=== PATIENT | female | born 2000 | race American Indian/Alaskan Native ===

== ENCOUNTER 2020-12-07 19:34 | Outpatient (CLI) | payer BC ==
[2020-12-07 20:54] VITALS: BP 114/69
[2020-12-07] MEDS ORDERED: LACTATED RINGERS 500 ML IV ONE ×2 (21:30→23:36)
[2020-12-07] MEDS ORDERED: ONDANSETRON 4 MG/2 ML INJ IV ONE (22:00)
[2020-12-07 22:54] LABS: Bacteria,Urine 1+ /HPF (Negative); Bilirubin,Urine NEG (Negative); Blood,Urine NEG (Negative); Color,Urine Amber (Yellow); Mucus,Urine 2+ /HPF
== END 2020-12-07 23:33 | disposition home or self-care (01) ==
LOC: TRG 19:34 → APU 21:56 → TRG 23:33
PROVIDERS: ATTEND Obstetrics & Gynecology
DX: O21.2 Late vomiting of pregnancy (principal); Z3A.32 32 weeks gestation of pregnancy; Z79.899 Other long term (current) drug therapy
CPT/HCPCS: 59025; 81001; 87086; 96365; J2405; J7120; 96360

== ENCOUNTER 2021-01-09 16:08 | Outpatient (CLI) | payer BC, OTHER ==
[2021-01-09 16:38] VITALS: BP 122/64
== END 2021-01-09 17:47 | disposition home or self-care (01) ==
LOC: TRG 16:08 → APU 16:09 → TRG 17:47
PROVIDERS: ATTEND Student in an Organized Health Care Education/Training Program
DX: Z34.93 Encounter for supervision of normal pregnancy, unspecified, third trimester (principal); Z3A.37 37 weeks gestation of pregnancy
CPT/HCPCS: 59025; Q0177

== ENCOUNTER 2021-02-07 08:25 | Inpatient (IN) | payer BC, OTHER ==
--- NOTE | 2021-02-07 09:28 | History and Physical Report ---
History of Present Illness Date of examination: 02/07/21 Date of admission: 02/07/21 08:25 Chief complaint: scheduled induction History of present illness: EDC Confirmation: 01/28/2021 Past History : 2 Term Births: 1 Premature Births: 0 Living Children: 1 Para: 1 Mult. Births: 0 Prev : 0 Prev. attempt? 0 Aborta: 0 Elect. Ab: 0 Spont. 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 Past Medical History: Reviewed history from 05/29/2019 and no changes required: Negative Past Medical History Past Surgical History: Reviewed history from 05/29/2019 and no changes required: negative Past Medical History Anesthesia Complications: negative Anemia: negative Autoimmune Disorder: negative Bleeding Disorder: negative Blood Transfusions: negative Breast Disease: negative Diabetes: negative Heart Disease: negative Hypertension: negative Hepatitis/Liver Disease: negative Kidney Disease/UTI: negative Neurologic/Epilepsy/Migraines: negative Phlebitis/Varicosities: negative Psychiatric: negative Pulmonary Disease/Asthma: negative Thyroid Disease: negative Hospitalizations: negative Surgery (Non-director of conservation): negative Abnormal PAP: negative TIFFANY Exposure: negative Infertility: negative Uterine Anomaly: negative Uterine Surgery (not C/S): negative Other Gynecologic Problems: negative Social Hx: Patient is single Smoking History: Patient has never smoked. Infection History Hx of STD: chlamydia HIV Risk Eval: no Hepatitis B Risk Eval: low risk Personal hx. of genital herpes: no Partner hx. of genital herpes: no Rash, Viral, or Febrile illness since last LMP? no Varicella/Chicken Pox Status: Unknown TB Risk: no Genetic History Congenital Heart Defect: Mom: no Dad: no Alex Disease: Mom: no Dad: no Thalassemia Mom: no Dad: no Neural Tube Defect Mom: no Dad: no Down's Syndrome Mom: no Dad: no Adam-Sachs Mom: no Dad: no Sickle Cell Disease/Trait Mom: no Dad: no Hemophilia Mom: no Dad: no Muscular Dystrophy Mom: no Dad: no Cystic Fibrosis Mom: no Dad: no Cassatt Chorea Mom: no Dad: no Mental Retardation Mom: no Dad: no Fragile X Mom: no Dad: no Other Genetic/Chromosomal Disorder Mom: no Dad: no Child w/other defect Mom: no Dad: no Enviromental Exposures Enviromental Exposures Reviewed Xray Exposure: no Medication, drug, or alcohol use since LMP: no Chemical/Other Exposure: no Exposure to Cat Liter: no Hx of Parvovirus (Fifth Disease): no Occupational Exposure to Children: none Active Medications (reviewed today): None Current Allergies (reviewed today): * UNKNOWN MEDICATION IN EPIDURAL (Critical) Current Medications (including medications started today): 27-1 MG ORAL TABLET ( VIT-FE FUMARATE-FA) 1 PO daily; Route: ORAL Past History Past Medical History: other (see HPI) Past Surgical History: other (see HPI) 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) Family/Genetic History: other (see HPI) Social history: other (see HPI) - Obstetrical History Expected Date of Delivery: 01/28/21 Actual Gestation: 41 Week(s) 3 Day(s) : 2 Para: 1 Hx # Term Pregnancies: 1 Number of Pregnancies: 0 Spontaneous Abortions: 0 Induced : 0 Number of Living Children: 1 Medications and Allergies Allergies Allergy/AdvReac Type Severity Reaction Status Date / Time No Known Allergies Allergy Unverified 12/07/20 20:55 Home Medications Medication Instructions Recorded Confirmed Last Taken Type Vit-Fe Fumar-FA [ 1 tab PO DAILY 01/09/21 01/09/21 01/08/21 16:00 History Vitamin] Review of Systems All systems: negative - Physical Exam Breasts: Positive: deferred Cardiovascular: Regular rate Lungs: Positive: Normal air movement Abdomen: Positive: normal appearance, soft. Negative: tenderness, guarding Genitourinary (Female): Positive: normal external genitalia, normal perenium Vulva: both: normal Vagina: Positive: normal moisture Uterus: Positive: normal size, normal contour, other (gravid) Anus/Rectum: Positive: normal perianal skin, heme negative Extremities: Positive: normal - Obstetrical FHR comments: RN at bedside to place external monitors Uterine Contraction Monitor Mode: Palpation Cervical Dilatation: 1 Cervical Effacement Percentage: 0 station: -3 Uterine Contraction Pattern: Absent Uterine Tone Measurement Phase: Resting Results All other labs normal. Tests: (1) Ct, Ng, Trich vag by DIDI ([id number]) Order Note: Clinical Information: SRC:UR SRC:VR Chlamydia by DIDI Negative Negative *1 Gonococcus by DIDI Negative Negative *2 Trich vag by DIDI Negative Negative *3 Tests: (2) Strep Gp B DIDI ([id number]) ! Strep Gp B DIDI [A] Positive Negative *4 Tests: (1) Profile I ([id number]) Order Note: Clinical Information: SRC:UR HBsAg Screen Negative Negative *1 RPR Non Reactive Non Reactive *2 Rubella Antibodies, IgG 29.70 index Immune >0.99 *3 Non-immune <0.90 Equivocal 0.90 - 0.99 Immune >0.99 ABO Grouping A *4 Rh Factor Positive *5 Please note: Prior records for this patient's ABO / Rh type are not available for additional verification. Antibody Screen Negative Negative *6 WBC [H] 10.9 x10E3/uL 3.4-10.8 *7 RBC 4.30 x10E6/uL 3.77-5.28 *8 Hemoglobin 12.0 g/dL 11.1-15.9 *9 Hematocrit 35.1 % 34.0-46.6 *10 MCV 82 fL 79-97 *11 MCH 27.9 pg 26.6-33.0 *12 MCHC 34.2 g/dL 31.5-35.7 *13 RDW 13.2 % 11.7-15.4 *14 Platelets 190 x10E3/uL 150-450 *15 Neutrophils 73 % Not Estab. *16 Lymphs 20 % Not Estab. *17 Monocytes 4 % Not Estab. *18 Eos 1 % Not Estab. *19 Basos 1 % Not Estab. *20 ! Immature Cells <No Reported Value> *21 Neutrophils (Absolute) [H] 8.1 x10E3/uL 1.4-7.0 *22 Lymphs (Absolute) 2.2 x10E3/uL 0.7-3.1 *23 Monocytes(Absolute) 0.5 x10E3/uL 0.1-0.9 *24 Eos (Absolute) 0.1 x10E3/uL 0.0-0.4 *25 Baso (Absolute) 0.1 x10E3/uL 0.0-0.2 *26 ! Immature Granulocytes 1 % Not Estab. *27 ! Immature Grans (Abs) 0.1 x10E3/uL 0.0-0.1 *28 ! NRBC <No Reported Value> *29 Hematology Comments: <No Reported Value> *30 Tests: (2) HB Solu + Rflx Frac ([id number]) Hemoglobin (Hgb) Solubility Negative Negative *31 Tests: (3) HIV Ag/Ab with Reflex ([id number]) HIV Screen 4th Generation wRfx Non Reactive Non Reactive *32 Tests: (4) Varicella-Zoster V Ab, IgG ([id number]) ! Varicella Zoster IgG 502 index Immune >165 *33 Negative <135 Equivocal 135 - 165 Positive >165 A positive result generally indicates exposure to the pathogen or administration of specific immunoglobulins, but it is not indication of active infection or stage of disease. Tests: (5) HCV Antibody reflex to DIDI ([id number]) ! HCV Ab <0.1 s/co ratio 0.0-0.9 *34 Tests: (6) Interpretation: ([id number]) ! Interpretation: SPRCS *35 Negative Not infected with HCV, unless recent infection is suspected or other evidence exists to indicate HCV infection. Tests: (7) Urine Culture, Routine ([id number]) Urine Culture, Routine Final report *36 Tests: (8) Result ([id number]) ! Result 1 "Result Below..." *37 RESULT: Lactobacillus species 25,000-50,000 colony forming units per mL Susceptibility not normally performed on this organism. Assessment and Plan Pt denies complaints this am; Reports +FM and prior successful s/p Pitocin induction. US in office on 02/03/21 with EFW [id number] reviewed with pt. POC d/w pt. All questions and concerns addressed. Pt verbalizes understanding and agrees to POC. Anticipate . - Patient Problems (1) 41 weeks gestation of Current Visit: Yes Status: Acute Plan to address problem: continuous efm and toco (2) Encounter for induction of labor Current Visit: Yes Status: Acute (3) GBS carrier Current Visit: Yes Status: Acute Plan to address problem: treatment with ROM or with active labor
[2021-02-07] MEDS ORDERED: ePHEDrine SULFATE 50 MG/1 ML INJ IV PRN ×2 (09:37→10:00)
[2021-02-07] MEDS ORDERED: LIDOCAINE (2%) 20 MG/1 ML VIAL 20 ML MDV INFILTRATI NR (09:37)
--- NOTE | 2021-02-07 09:39 | Anesthesia Consultation ---
Anesthesia Consult and Med Hx Date of service: 02/07/21 - Airway Anesthetic Teeth Evaluation: Good ROM Head & Neck: Adequate Mental/Hyoid Distance: Adequate Mallampati Class: Class II Intubation Access Assessment: Probably Good - Pulmonary Exam CTA: Yes - Cardiac Exam Cardiac Exam: RRR - Pre-Operative Health Status ASA Pre-Surgery Classification: ASA2 Proposed Anesthetic Plan: Epidural - Pulmonary Hx Asthma: No - Cardiovascular System Hx Hypertension: No - Central Nervous System Hx Seizures: No Hx Psychiatric Problems: No - Endocrine Hx Renal Disease: No Hx Hypothyroidism: No Hx Hyperthyroidism: No - Hematic Hx Anemia: No Hx Sickle Cell Disease: No - Other Systems Hx Alcohol Use: No - Additional Comments Anesthesia Medical History Comments: Pt reports rash/allergic reaction to previous epidural with bupivacaine/fentanyl. States she was told it was likely fentanyl. Skin wheel with bupivacaine performed to r/o bupivacaine allergy.
[2021-02-07] MEDS ORDERED: NALOXONE 2 MG/2 ML INJ IV PRN (09:44)
[2021-02-07] MEDS ORDERED: AMPICILLIN 2 GM in SODIUM CHLORIDE 0.9% 50 ML IV ONE (09:45)
[2021-02-07] MEDS ORDERED: ACETAMINOPHEN 325 MG TAB PO PRN (10:00)
[2021-02-07] MEDS ORDERED: NalbUPHINE 10 MG/1 ML INJ IV PRN (10:00)
[2021-02-07] MEDS ORDERED: ONDANSETRON 4 MG/2 ML INJ IV PRN (10:00)
[2021-02-07] MEDS ORDERED: PROMETHAZINE 25 MG TAB PO PRN (10:00)
[2021-02-07] MEDS ORDERED: LACTATED RINGERS 1,000 ML IV SCH (10:00)
[2021-02-07] MEDS ORDERED: OXYTOCIN DRIP 30 UNITS/500 ML BAG IV SCH (10:00)
[2021-02-07] MEDS ORDERED: NALOXONE 0.4 MG/1 ML INJ IV PRN (10:00)
[2021-02-07] MEDS ORDERED: AMPICILLIN/NS 2 GM/100 ML 2 GM/100 ML BAG IV ONE (10:00)
[2021-02-07] MEDS ORDERED: TERBUTALINE 1 MG/1 ML INJ SUB-Q PRN (10:00)
[2021-02-07 10:16] LABS: Hematocrit 36.2 % (30.3-42.9); Hemoglobin 12.7 gm/dl (10.1-14.3); Mean Corpuscular HGB Conc 35 % (30-34); Mean Corpuscular Volume 82 fl (79-97); Platelet Count 137 K/mm3 (140-440); Red Blood Count 4.39 M/mm3 (3.65-5.03); Red Cell Distribution Width 13.6 % (13.2-15.2)
[2021-02-07] MEDS: OXYTOCIN DRIP 30 UNITS/500 ML BAG IV SCH ×6 (10:30→16:26)
[2021-02-07] MEDS ORDERED: SODIUM CHLORIDE INFILTRATI SCH ×2 (18:00→23:45)
[2021-02-07] MEDS ORDERED: BUPIVACAINE INFILTRATI SCH ×2 (18:00→23:45)
[2021-02-07] MEDS: AMPICILLIN/NS 1 GM/50 ML 1 GM/50 ML BAG IV SCH (19:27)
--- NOTE | 2021-02-07 21:26 | Progress Note ---
Assessment and Plan Pt denies complaints at this time. Pitocin restarted s/p pm care and dinner. SVE /2. POC d/w pt and FOC. All questions and concerns addressed. Pt verbalizes understanding and agrees to POC. Plan to continue Pitocin induction per protocol. Anticipate . - Patient Problems (1) 41 weeks gestation of Current Visit: Yes Status: Acute Plan to address problem: continuous efm and toco monitor closely and notify provider with any changes in status (2) Encounter for induction of labor Current Visit: Yes Status: Acute (3) GBS carrier Current Visit: Yes Status: Acute Plan to address problem: Ampicillin q4h VS per protocol Subjective - Subjective Date of service: 02/07/21 Principal diagnosis: IUP @41wks, IOL Interval history: EDC Confirmation: 01/28/2021 Past History : 2 Term Births: 1 Premature Births: 0 Living Children: 1 Para: 1 Mult. Births: 0 Prev : 0 Prev. attempt? 0 Aborta: 0 Elect. Ab: 0 Spont. 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 Past Medical History: Reviewed history from 05/29/2019 and no changes required: Negative Past Medical History Past Surgical History: Reviewed history from 05/29/2019 and no changes required: negative Past Medical History Anesthesia Complications: negative Anemia: negative Autoimmune Disorder: negative Bleeding Disorder: negative Blood Transfusions: negative Breast Disease: negative Diabetes: negative Heart Disease: negative Hypertension: negative Hepatitis/Liver Disease: negative Kidney Disease/UTI: negative Neurologic/Epilepsy/Migraines: negative Phlebitis/Varicosities: negative Psychiatric: negative Pulmonary Disease/Asthma: negative Thyroid Disease: negative Hospitalizations: negative 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 Infection History Hx of STD: chlamydia HIV Risk Eval: no Hepatitis B Risk Eval: low risk Personal hx. of genital herpes: no Partner hx. of genital herpes: no Rash, Viral, or Febrile illness since last LMP? no Varicella/Chicken Pox Status: Unknown TB Risk: no Genetic History Congenital Heart Defect: Mom: no Dad: no Alex Disease: Mom: no Dad: no Thalassemia Mom: no Dad: no Neural Tube Defect Mom: no Dad: no Down's Syndrome Mom: no Dad: no Adam-Sachs Mom: no Dad: no Sickle Cell Disease/Trait Mom: no Dad: no Hemophilia Mom: no Dad: no Muscular Dystrophy Mom: no Dad: no Cystic Fibrosis Mom: no Dad: no Luz Chorea Mom: no Dad: no Mental Retardation Mom: no Dad: no Fragile X Mom: no Dad: no Other Genetic/Chromosomal Disorder Mom: no Dad: no Child w/other defect Mom: no Dad: no Enviromental Exposures Enviromental Exposures Reviewed Xray Exposure: no Medication, drug, or alcohol use since LMP: no Chemical/Other Exposure: no Exposure to Cat Liter: no Hx of Parvovirus (Fifth Disease): no Occupational Exposure to Children: none Active Medications (reviewed today): None Current Allergies (reviewed today): * UNKNOWN MEDICATION IN EPIDURAL (Critical) Current Medications (including medications started today): 27-1 MG ORAL TABLET ( VIT-FE FUMARATE-FA) 1 PO daily; Route: ORAL Patient reports: movement normal, contractions, no new complaints, no loss of fluid, no vaginal bleeding Objective - Vital Signs Vital Signs: Vital Signs - 12hr 02/07/21 02/07/21 02/07/21 09:40 10:10 10:12 Temperature 98.3 F Pulse Rate 85 89 83 Respiratory 15 Rate Blood Pressure 112/67 Blood Pressure 112/67 [Left] O2 Sat by Pulse 97 Oximetry O2 Sat by Pulse Oximetry [ Bilateral] 02/07/21 02/07/21 02/07/21 10:17 10:22 10:27 Temperature Pulse Rate 95 H 99 H 90 Respiratory Rate Blood Pressure Blood Pressure [Left] O2 Sat by Pulse 98 97 99 Oximetry O2 Sat by Pulse Oximetry [ Bilateral] 02/07/21 02/07/21 02/07/21 10:32 10:37 10:42 Temperature Pulse Rate 94 H 77 80 Respiratory Rate Blood Pressure Blood Pressure [Left] O2 Sat by Pulse 97 97 96 Oximetry O2 Sat by Pulse Oximetry [ Bilateral] 02/07/21 02/07/21 02/07/21 10:46 10:47 10:52 Temperature Pulse Rate 78 81 79 Respiratory Rate Blood Pressure Blood Pressure [Left] O2 Sat by Pulse 94 96 95 Oximetry O2 Sat by Pulse Oximetry [ Bilateral] 02/07/21 02/07/21 02/07/21 10:57 10:58 11:02 Temperature Pulse Rate 79 81 69 Respiratory Rate Blood Pressure Blood Pressure [Left] O2 Sat by Pulse 96 94 96 Oximetry O2 Sat by Pulse Oximetry [ Bilateral] 02/07/21 02/07/21 02/07/21 11:03 11:07 11:08 Temperature Pulse Rate 78 79 80 Respiratory Rate Blood Pressure Blood Pressure [Left] O2 Sat by Pulse 94 95 94 Oximetry O2 Sat by Pulse Oximetry [ Bilateral] 02/07/21 02/07/21 02/07/21 11:12 11:17 11:22 Temperature Pulse Rate 89 77 85 Respiratory Rate Blood Pressure Blood Pressure [Left] O2 Sat by Pulse 97 95 97 Oximetry O2 Sat by Pulse Oximetry [ Bilateral] 02/07/21 02/07/21 02/07/21 11:27 11:28 11:32 Temperature Pulse Rate 88 88 82 Respiratory Rate Blood Pressure Blood Pressure [Left] O2 Sat by Pulse 100 86 100 Oximetry O2 Sat by Pulse Oximetry [ Bilateral] 02/07/21 02/07/21 02/07/21 11:37 11:42 11:47 Temperature Pulse Rate 79 86 86 Respiratory Rate Blood Pressure Blood Pressure [Left] O2 Sat by Pulse 100 100 99 Oximetry O2 Sat by Pulse Oximetry [ Bilateral] 02/07/21 02/07/21 02/07/21 11:52 11:57 12:02 Temperature Pulse Rate 79 92 H 89 Respiratory Rate Blood Pressure Blood Pressure [Left] O2 Sat by Pulse 97 98 98 Oximetry O2 Sat by Pulse Oximetry [ Bilateral] 02/07/21 02/07/21 02/07/21 12:07 12:12 12:17 Temperature Pulse Rate 89 82 85 Respiratory Rate Blood Pressure Blood Pressure [Left] O2 Sat by Pulse 97 96 96 Oximetry O2 Sat by Pulse Oximetry [ Bilateral] 02/07/21 02/07/21 02/07/21 12:22 12:27 12:31 Temperature Pulse Rate 90 88 83 Respiratory Rate Blood Pressure Blood Pressure [Left] O2 Sat by Pulse 96 95 94 Oximetry O2 Sat by Pulse Oximetry [ Bilateral] 02/07/21 02/07/21 02/07/21 12:32 12:37 12:40 Temperature Pulse Rate 89 92 H 101 H Respiratory Rate Blood Pressure Blood Pressure [Left] O2 Sat by Pulse 96 95 93 Oximetry O2 Sat by Pulse Oximetry [ Bilateral] 02/07/21 02/07/21 02/07/21 12:42 12:47 12:52 Temperature Pulse Rate 81 84 84 Respiratory Rate Blood Pressure Blood Pressure [Left] O2 Sat by Pulse 98 97 97 Oximetry O2 Sat by Pulse Oximetry [ Bilateral] 02/07/21 02/07/21 02/07/21 12:57 13:02 13:07 Temperature Pulse Rate 86 83 86 Respiratory Rate Blood Pressure Blood Pressure [Left] O2 Sat by Pulse 99 98 97 Oximetry O2 Sat by Pulse Oximetry [ Bilateral] 02/07/21 02/07/21 02/07/21 13:12 13:17 13:30 Temperature Pulse Rate 84 91 H 84 Respiratory Rate Blood Pressure Blood Pressure [Left] O2 Sat by Pulse 98 99 98 Oximetry O2 Sat by Pulse Oximetry [ Bilateral] 02/07/21 02/07/21 02/07/21 13:34 13:35 13:40 Temperature Pulse Rate 83 84 95 H Respiratory Rate Blood Pressure Blood Pressure [Left] O2 Sat by Pulse 93 99 97 Oximetry O2 Sat by Pulse Oximetry [ Bilateral] 02/07/21 02/07/21 02/07/21 13:45 13:50 14:05 Temperature Pulse Rate 90 89 92 H Respiratory Rate Blood Pressure Blood Pressure [Left] O2 Sat by Pulse 98 97 99 Oximetry O2 Sat by Pulse Oximetry [ Bilateral] 02/07/21 02/07/21 02/07/21 14:10 14:15 14:20 Temperature Pulse Rate 85 97 H 91 H Respiratory Rate Blood Pressure Blood Pressure [Left] O2 Sat by Pulse 99 100 94 Oximetry O2 Sat by Pulse Oximetry [ Bilateral] 02/07/21 02/07/21 02/07/21 14:25 14:27 14:30 Temperature Pulse Rate 82 103 H 94 H Respiratory Rate Blood Pressure Blood Pressure [Left] O2 Sat by Pulse 98 93 98 Oximetry O2 Sat by Pulse Oximetry [ Bilateral] 02/07/21 02/07/21 02/07/21 14:32 14:38 14:43 Temperature Pulse Rate 104 H 93 H Respiratory Rate Blood Pressure Blood Pressure [Left] O2 Sat by Pulse 93 100 95 Oximetry O2 Sat by Pulse Oximetry [ Bilateral] 02/07/21 02/07/21 02/07/21 14:44 14:48 14:53 Temperature Pulse Rate 94 H 85 86 Respiratory Rate Blood Pressure Blood Pressure [Left] O2 Sat by Pulse 94 97 96 Oximetry O2 Sat by Pulse Oximetry [ Bilateral] 02/07/21 02/07/21 02/07/21 14:58 15:03 15:08 Temperature Pulse Rate 94 H 94 H 95 H Respiratory Rate Blood Pressure Blood Pressure [Left] O2 Sat by Pulse 97 98 96 Oximetry O2 Sat by Pulse Oximetry [ Bilateral] 02/07/21 02/07/21 02/07/21 15:10 15:13 15:18 Temperature Pulse Rate 86 89 81 Respiratory Rate Blood Pressure Blood Pressure [Left] O2 Sat by Pulse 94 96 99 Oximetry O2 Sat by Pulse Oximetry [ Bilateral] 02/07/21 02/07/21 02/07/21 15:23 15:27 15:28 Temperature Pulse Rate 82 77 84 Respiratory Rate Blood Pressure Blood Pressure [Left] O2 Sat by Pulse 96 0 L 97 Oximetry O2 Sat by Pulse Oximetry [ Bilateral] 02/07/21 02/07/21 02/07/21 15:33 15:34 15:38 Temperature Pulse Rate 88 87 88 Respiratory Rate Blood Pressure Blood Pressure [Left] O2 Sat by Pulse 95 94 95 Oximetry O2 Sat by Pulse Oximetry [ Bilateral] 10/02/07/21 02/07/21 15:43 15:44 15:48 Temperature Pulse Rate 86 84 79 Respiratory Rate Blood Pressure Blood Pressure [Left] O2 Sat by Pulse 96 93 95 Oximetry O2 Sat by Pulse Oximetry [ Bilateral] 02/07/21 02/07/21 02/07/21 15:53 15:54 15:58 Temperature Pulse Rate 73 81 78 Respiratory Rate Blood Pressure Blood Pressure [Left] O2 Sat by Pulse 96 94 97 Oximetry O2 Sat by Pulse Oximetry [ Bilateral] 02/07/21 02/07/21 02/07/21 16:03 16:08 16:13 Temperature Pulse Rate 74 82 82 Respiratory Rate Blood Pressure Blood Pressure [Left] O2 Sat by Pulse 97 96 98 Oximetry O2 Sat by Pulse Oximetry [ Bilateral] 02/07/21 02/07/21 02/07/21 16:18 16:23 16:28 Temperature Pulse Rate 75 79 80 Respiratory Rate Blood Pressure Blood Pressure [Left] O2 Sat by Pulse 96 98 97 Oximetry O2 Sat by Pulse Oximetry [ Bilateral] 02/07/21 02/07/21 02/07/21 16:29 16:32 16:33 Temperature 99.3 F Pulse Rate 78 74 Respiratory 16 Rate Blood Pressure Blood Pressure 108/68 [Left] O2 Sat by Pulse 91 97 Oximetry O2 Sat by Pulse 97 Oximetry [ Bilateral] 02/07/21 02/07/21 02/07/21 16:34 16:38 16:39 Temperature Pulse Rate 80 75 71 Respiratory Rate Blood Pressure 108/68 Blood Pressure [Left] O2 Sat by Pulse 96 92 Oximetry O2 Sat by Pulse Oximetry [ Bilateral] 02/07/21 02/07/21 02/07/21 16:43 16:45 16:48 Temperature Pulse Rate 82 84 78 Respiratory Rate Blood Pressure Blood Pressure [Left] O2 Sat by Pulse 98 94 98 Oximetry O2 Sat by Pulse Oximetry [ Bilateral] 02/07/21 02/07/21 02/07/21 16:59 17:04 17:09 Temperature Pulse Rate 89 77 77 Respiratory Rate Blood Pressure Blood Pressure [Left] O2 Sat by Pulse 88 97 97 Oximetry O2 Sat by Pulse Oximetry [ Bilateral] 02/07/21 02/07/21 02/07/21 17:14 17:19 17:24 Temperature Pulse Rate 77 78 82 Respiratory Rate Blood Pressure Blood Pressure [Left] O2 Sat by Pulse 95 96 96 Oximetry O2 Sat by Pulse Oximetry [ Bilateral] 02/07/21 02/07/21 02/07/21 17:29 17:30 17:34 Temperature Pulse Rate 79 87 76 Respiratory Rate Blood Pressure Blood Pressure [Left] O2 Sat by Pulse 95 94 97 Oximetry O2 Sat by Pulse Oximetry [ Bilateral] 02/07/21 02/07/21 02/07/21 17:39 17:40 17:44 Temperature Pulse Rate 86 89 75 Respiratory Rate Blood Pressure Blood Pressure [Left] O2 Sat by Pulse 95 93 96 Oximetry O2 Sat by Pulse Oximetry [ Bilateral] 02/07/21 02/07/21 02/07/21 17:49 17:50 17:54 Temperature Pulse Rate 83 79 83 Respiratory Rate Blood Pressure Blood Pressure [Left] O2 Sat by Pulse 96 94 96 Oximetry O2 Sat by Pulse Oximetry [ Bilateral] 02/07/21 02/07/21 02/07/21 17:58 17:59 18:04 Temperature Pulse Rate 82 80 89 Respiratory Rate Blood Pressure Blood Pressure [Left] O2 Sat by Pulse 89 97 98 Oximetry O2 Sat by Pulse Oximetry [ Bilateral] 02/07/21 02/07/21 02/07/21 18:05 18:09 18:10 Temperature Pulse Rate 80 85 83 Respiratory Rate Blood Pressure Blood Pressure [Left] O2 Sat by Pulse 94 96 94 Oximetry O2 Sat by Pulse Oximetry [ Bilateral] 02/07/21 02/07/21 02/07/21 18:14 18:17 18:19 Temperature Pulse Rate 82 84 79 Respiratory Rate Blood Pressure Blood Pressure [Left] O2 Sat by Pulse 95 94 96 Oximetry O2 Sat by Pulse Oximetry [ Bilateral] 02/07/21 02/07/21 02/07/21 18:22 18:24 18:27 Temperature Pulse Rate 74 76 75 Respiratory Rate Blood Pressure Blood Pressure [Left] O2 Sat by Pulse 94 94 94 Oximetry O2 Sat by Pulse Oximetry [ Bilateral] 02/07/21 02/07/21 02/07/21 18:29 18:34 18:40 Temperature Pulse Rate 75 72 63 Respiratory Rate Blood Pressure Blood Pressure [Left] O2 Sat by Pulse 95 93 95 Oximetry O2 Sat by Pulse Oximetry [ Bilateral] 02/07/21 02/07/21 02/07/21 18:45 18:47 18:50 Temperature Pulse Rate 88 78 81 Respiratory Rate Blood Pressure Blood Pressure [Left] O2 Sat by Pulse 97 94 97 Oximetry O2 Sat by Pulse Oximetry [ Bilateral] 02/07/21 02/07/21 02/07/21 18:55 18:57 19:00 Temperature Pulse Rate 91 H 90 97 H Respiratory Rate Blood Pressure Blood Pressure [Left] O2 Sat by Pulse 100 92 95 Oximetry O2 Sat by Pulse Oximetry [ Bilateral] 02/07/21 02/07/21 02/07/21 19:05 19:10 19:15 Temperature Pulse Rate 80 104 H 96 H Respiratory Rate Blood Pressure Blood Pressure [Left] O2 Sat by Pulse 96 96 97 Oximetry O2 Sat by Pulse Oximetry [ Bilateral] 02/07/21 02/07/21 02/07/21 19:18 19:20 19:25 Temperature 98.4 F Pulse Rate 103 H 97 H 96 H Respiratory 16 Rate Blood Pressure Blood Pressure 124/56 [Left] O2 Sat by Pulse 94 94 99 Oximetry O2 Sat by Pulse Oximetry [ Bilateral] 02/07/21 02/07/21 02/07/21 19:27 19:28 19:30 Temperature Pulse Rate 87 102 H Respiratory Rate Blood Pressure 124/56 Blood Pressure [Left] O2 Sat by Pulse 98 Oximetry O2 Sat by Pulse 97 Oximetry [ Bilateral] 02/07/21 02/07/21 02/07/21 19:35 19:40 19:45 Temperature Pulse Rate 104 H 98 H 131 H Respiratory Rate Blood Pressure Blood Pressure [Left] O2 Sat by Pulse 97 97 98 Oximetry O2 Sat by Pulse Oximetry [ Bilateral] 02/07/21 02/07/21 02/07/21 19:50 19:55 20:00 Temperature Pulse Rate 103 H 104 H 91 H Respiratory Rate Blood Pressure Blood Pressure [Left] O2 Sat by Pulse 98 96 96 Oximetry O2 Sat by Pulse Oximetry [ Bilateral] 02/07/21 02/07/21 02/07/21 20:05 20:10 20:15 Temperature Pulse Rate 96 H 97 H 88 Respiratory Rate Blood Pressure Blood Pressure [Left] O2 Sat by Pulse 97 98 98 Oximetry O2 Sat by Pulse Oximetry [ Bilateral] 02/07/21 02/07/21 02/07/21 20:20 20:25 20:30 Temperature Pulse Rate 100 H 110 H 91 H Respiratory Rate Blood Pressure Blood Pressure [Left] O2 Sat by Pulse 97 96 96 Oximetry O2 Sat by Pulse Oximetry [ Bilateral] 02/07/21 02/07/21 02/07/21 20:35 20:37 20:40 Temperature Pulse Rate 92 H 88 96 H Respiratory Rate Blood Pressure Blood Pressure [Left] O2 Sat by Pulse 97 94 97 Oximetry O2 Sat by Pulse Oximetry [ Bilateral] 02/07/21 02/07/21 02/07/21 20:45 20:50 20:55 Temperature Pulse Rate 86 92 H 95 H Respiratory Rate Blood Pressure Blood Pressure [Left] O2 Sat by Pulse 97 99 97 Oximetry O2 Sat by Pulse Oximetry [ Bilateral] 02/07/21 02/07/21 02/07/21 20:57 21:00 21:05 Temperature Pulse Rate 93 H 89 90 Respiratory Rate Blood Pressure Blood Pressure [Left] O2 Sat by Pulse 93 97 97 Oximetry O2 Sat by Pulse Oximetry [ Bilateral] - Exam Breasts: deferred Cardiovascular: Regular rate Lungs: Normal air movement Abdomen: Present: normal appearance, soft. Absent: tenderness, guarding Vulva: both: normal Uterus: Present: normal, other (gravid) FHR: auscultation normal, category 1 Uterine Contraction Monitor Mode: External Cervical Dilatation: 4 Cervical Effacement Percentage: 60 station: -2 Uterine Contraction Pattern: Regular Uterine Tone Measurement Phase: Resting Extremities: normal - Labs Labs: Abnormal Labs 02/07/21 10:00 MCHC 35 H Plt Count 137 L Laboratory Results - last 24 hr 02/07/21 02/07/21 02/07/21 10:00 10:00 10:00 WBC 10.6 RBC 4.39 Hgb 12.7 Hct 36.2 MCV 82 MCH 29 MCHC 35 H RDW 13.6 Plt Count 137 L Syphilis IgG Antibody Nonreactive Blood Type A POSITIVE Antibody Screen Negative
[2021-02-07] MEDS ORDERED: MINERAL OIL 30 ML ORAL LIQD PO PRN (22:00)
--- NOTE | 2021-02-07 23:58 | Progress Note ---
Labor Epidural - Labor Epidural Start Time: 23:45 Stop Time: 23:48 Performed by:: KRYSTLE CABRERA Procedure: Patient is requesting epidural for labor pain. H&P, and labs reviewed. Procedure explained, questions answered, consent obtained. Patient in sitting position with blood pressure cuff and pulse ox on and working. Timeout performed immediately before start of procedure. Sterile chlorahexadine 0.5% prep/drape. 3 mL 1% lidocaine skin wheal at L[3]-L[4]. 17-gauge tuohy epidural needle advanced to [id number] with saline at [7] cm. 25-gauge spinal needle advanced until clear, free-flowing CSF. Intrathecal dexmedetomidine [5] mcg administered and needle removed. Epidural catheter advanced to [12] cm, negative aspiration for blood and csf, negative test dose 3 ml 1.5% lidocaine with epinephrine. Sterile sponge and tegaderm applied, followed by tape reinforcement. Patient tolerated procedure well.
[2021-02-08] MEDS: AMPICILLIN/NS 1 GM/50 ML 1 GM/50 ML BAG IV SCH
--- NOTE | 2021-02-08 06:09 | Procedure Note ---
OB Delivery Note - Delivery Date of Delivery: 02/08/21 [employer] Supervisor: ROSI MORIN Estimated blood loss: 200cc - Vaginal Delivery presentation: vertex Delivery position: OA Intrapartum events: none Delivery induction: oxytocin Delivery monitor: external FHT, external uterine Route of delivery: Delivery placenta: spontaneous Delivery cord: 3 umbilical vessels Episiotomy: none Delivery laceration: none Anesthesia: epidural Delivery comments: LUCAS present at delivery counts correct x2 fundus firm below Umbilicus with scant lochia mother and baby left LDR stable - Infant A at 1 minute: 8 at 5 minutes: 9 Gender: Male (9lbs 8oz)
[2021-02-08] MEDS ORDERED: diphenhydrAMINE 25 MG CAP PO PRN (10:30)
[2021-02-08] MEDS ORDERED: WITCH HAZEL/ GLYCERIN PAD TP PRN (10:30)
[2021-02-08] MEDS ORDERED: HYDROCORTISONE 25 MG RECTAL SUPP PR PRN (10:30)
[2021-02-08] MEDS: PRENATAL VIT27-FE FUMARATE-FOLIC ACID VIT TAB PO SCH (10:44)
[2021-02-08] MEDS: IBUPROFEN 600 MG TAB PO SCH ×3 (10:44→22:36)
[2021-02-08] MEDS: FERROUS SULFATE 325 MG TAB PO SCH ×2 (10:44→22:36)
[2021-02-08] MEDS: DOCUSATE SODIUM 100 MG CAP PO SCH ×2 (10:44→22:36)
[2021-02-08] MEDS ORDERED: PROMETHAZINE 25 MG TAB PO PRN (11:00)
[2021-02-08] MEDS ORDERED: ONDANSETRON 4 MG/2 ML INJ IV PRN (11:00)
[2021-02-08] MEDS ORDERED: BENZOCAINE/MENTHOL 20/0.5% TOP SPRAY 56 GM TP PRN (11:00)
[2021-02-08] MEDS ORDERED: oxyCODONE /ACETAMINOPHEN 5-325MG TAB PO PRN (11:00)
[2021-02-08] MEDS ORDERED: ACETAMINOPHEN 325 MG TAB PO PRN (11:00)
[2021-02-08] MEDS ORDERED: LANOLIN/ZINC/DIMETHICONE (LANSINOH) 7 GM TP PRN (11:00)
--- NOTE | 2021-02-08 17:19 | Progress Note ---
Assessment and Plan A: 20 y.o. s/p . P: Continue with care. Anticipate discharge home on 02/09. Subjective - Subjective Date of service: 02/08/21 Principal diagnosis: s/p , approxomately 12 hours. Patient reports: appetite normal, voiding normally, pain well controlled, ambulating normally : doing well Objective - Vital Signs Latest vital signs: Vital Signs Temp Pulse Resp BP BP Pulse Ox Pulse Ox 02/08/21 15:43 98.0 F 91 H 18 104/55 99 02/08/21 11:47 98.3 F 79 18 101/64 95 02/08/21 08:30 98 02/08/21 08:25 98.6 F 74 18 106/61 100 02/08/21 07:28 91 H 115/55 02/08/21 07:03 109 H 133/58 02/08/21 06:58 92 H 98 02/08/21 06:53 85 97 02/08/21 06:51 97 H 85 02/08/21 06:48 84 111/55 99 02/08/21 06:43 97 H 98 02/08/21 06:38 89 98 02/08/21 06:33 96 H 139/62 98 02/08/21 06:28 94 H 99 02/08/21 06:23 95 H 97 02/08/21 06:18 103 H 99 02/08/21 06:17 94 H 117/62 02/08/21 06:13 94 H 98 02/08/21 06:08 94 H 99 02/08/21 06:03 89 98 02/08/21 06:02 87 106/59 02/08/21 05:58 88 100 02/08/21 05:53 91 H 100 02/08/21 05:49 92 H 110/56 02/08/21 05:48 96 H 108/63 100 02/08/21 05:43 87 98 02/08/21 05:42 96 H 93 02/08/21 05:38 87 99 02/08/21 05:33 100 H 98 02/08/21 05:32 106 H 112/68 02/08/21 05:28 103 H 98 02/08/21 05:23 92 H 98 02/08/21 05:18 101 H 108/69 99 02/08/21 05:13 101 H 100 02/08/21 05:08 97 H 99 02/08/21 05:03 90 104/56 100 02/08/21 04:58 90 100 02/08/21 04:53 95 H 98 02/08/21 04:48 110 H 99 02/08/21 04:47 94 H 94/51 02/08/21 04:43 90 98 02/08/21 04:38 89 99 02/08/21 04:33 89 99 02/08/21 04:32 88 95/50 02/08/21 04:28 87 99 02/08/21 04:23 87 98 02/08/21 04:18 89 100 02/08/21 04:17 91 H 114/67 02/08/21 04:13 94 H 99 02/08/21 04:08 86 98 02/08/21 04:03 84 99 02/08/21 04:02 83 112/66 02/08/21 03:58 91 H 99 02/08/21 03:53 89 99 02/08/21 03:48 82 99 02/08/21 03:47 84 116/69 02/08/21 03:43 82 99 02/08/21 03:38 84 99 02/08/21 03:33 90 100 02/08/21 03:32 89 111/60 02/08/21 03:28 85 100 02/08/21 03:23 89 98 02/08/21 03:18 101 H 120/64 99 02/08/21 03:13 90 99 02/08/21 03:08 82 97 02/08/21 03:03 90 98 02/08/21 03:02 83 110/64 02/08/21 02:58 84 100 02/08/21 02:53 91 H 93 02/08/21 02:48 81 99 02/08/21 02:47 79 115/74 02/08/21 02:43 82 99 02/08/21 02:38 90 98 02/08/21 02:33 83 106/66 99 02/08/21 02:28 81 98 02/08/21 02:23 81 99 02/08/21 02:18 79 98 02/08/21 02:17 76 105/66 02/08/21 02:13 81 100 02/08/21 02:08 82 99 02/08/21 02:03 86 97 02/08/21 02:02 79 104/66 02/08/21 02:00 77 104/65 02/08/21 01:58 87 107/63 98 02/08/21 01:56 104 H 101/60 02/08/21 01:53 96 H 102/61 97 02/08/21 01:52 90 104/65 02/08/21 01:50 96 H 108/69 02/08/21 01:48 100 H 97 02/08/21 01:47 100 H 105/60 02/08/21 01:45 93 H 103/56 02/08/21 01:43 82 103/58 96 02/08/21 01:41 94 H 103/57 02/08/21 01:40 92 H 104/57 02/08/21 01:38 91 H 110/61 97 02/08/21 01:36 95 H 105/59 02/08/21 01:34 91 H 94 02/08/21 01:33 93 H 106/56 97 02/08/21 01:31 93 H 106/60 02/08/21 01:29 113 H 103/63 02/08/21 01:28 93 H 86 02/08/21 01:27 85 103/60 02/08/21 01:25 90 103/60 02/08/21 01:23 96 H 103/59 97 02/08/21 01:22 87 103/55 02/08/21 01:20 88 107/60 02/08/21 01:18 101 H 91/52 96 02/08/21 01:15 97 H 97/56 02/08/21 01:14 107 H 95/55 02/08/21 01:13 105 H 96 02/08/21 01:12 99 H 99/55 02/08/21 01:09 97 H 102/55 91 02/08/21 01:08 119 H 104/57 97 02/08/21 01:06 81 108/55 02/08/21 01:04 80 106/56 02/08/21 01:03 78 96 02/08/21 01:02 80 108/58 02/08/21 00:59 109 H 97/59 02/08/21 00:58 104 H 105/58 83 L 02/08/21 00:55 100 H 108/59 10/19/21 00:53 105 H 108/64 97 02/08/21 00:52 76 109/55 02/08/21 00:49 89 108/55 02/08/21 00:48 75 98 02/08/21 00:47 109 H 105/55 02/08/21 00:46 91 H 107/57 02/08/21 00:43 90 110/59 77 L 02/08/21 00:41 103 H 108/57 02/08/21 00:40 83 111/58 02/08/21 00:38 110 H 97 02/08/21 00:37 105 H 108/58 02/08/21 00:35 94 H 108/56 02/08/21 00:33 97 H 111/61 79 L 02/08/21 00:31 108 H 109/64 02/08/21 00:30 97 H 109/57 02/08/21 00:28 109 H 98 02/08/21 00:27 92 H 109/54 02/08/21 00:25 99 H 111/56 02/08/21 00:23 101 H 111/58 97 02/08/21 00:21 89 115/58 02/08/21 00:20 87 111/56 02/08/21 00:18 107 H 118/62 98 02/08/21 00:16 81 106/61 02/08/21 00:13 94 H 110/64 98 02/08/21 00:12 90 107/63 02/08/21 00:10 83 114/68 02/08/21 00:08 85 112/72 98 02/08/21 00:05 104 H 110/68 86 02/08/21 00:03 87 108/65 93 02/08/21 00:01 96 H 107/63 02/07/21 23:59 94 H 110/69 02/07/21 23:58 91 H 94 02/07/21 23:57 82 112/70 94 02/07/21 23:56 100 H 115/72 02/07/21 23:54 85 111/66 02/07/21 23:53 83 96 02/07/21 23:51 90 94 02/07/21 23:48 82 117/65 98 02/07/21 23:43 91 H 98 10/18/21 23:38 96 H 96 10/18/21 23:35 73 92 10/18/21 23:33 76 97 10/18/21 23:28 85 118/78 97 10/18/21 23:23 90 98 10/18/21 23:13 95 H 93 10/18/21 23:12 85 93 10/18/21 23:08 80 98 10/18/21 23:04 80 85 10/18/21 23:03 84 98 10/18/21 22:58 98 H 97 10/18/21 22:53 94 H 98 10/18/21 22:48 89 96 10/18/21 22:46 80 94 10/18/21 22:43 86 98 10/18/21 22:38 78 97 10/18/21 22:33 85 97 10/18/21 22:28 78 99 10/18/21 21:05 90 97 10/18/21 21:00 89 97 10/18/21 20:57 93 H 93 1018/21 20:55 95 H 97 1018/21 20:50 92 H 99 10/18/21 20:45 86 97 10/18/21 20:40 96 H 97 10/18/21 20:37 88 94 10/18/21 20:35 92 H 97 10/18/21 20:30 91 H 96 10/18/21 20:25 110 H 96 10/18/21 20:20 100 H 97 10/18/21 20:15 88 98 10/18/21 20:10 97 H 98 10/18/21 20:05 96 H 97 10/18/21 20:00 91 H 96 1018/21 19:55 104 H 96 10/18/21 19:50 103 H 98 10/18/21 19:45 131 H 98 10/18/21 19:40 98 H 97 10/18/21 19:35 104 H 97 10/18/21 19:30 102 H 98 10/18/21 19:28 97 10/18/21 19:27 87 124/56 10/18/21 19:25 98.4 F 96 H 16 124/56 99 10/18/21 19:20 97 H 94 10/18/21 19:18 103 H 94 10/18/21 19:15 96 H 97 10/18/21 19:10 104 H 96 10/18/21 19:05 80 96 02/07/21 19:00 97 H 95 02/07/21 18:57 90 92 02/07/21 18:55 91 H 100 02/07/21 18:50 81 97 02/07/21 18:47 78 94 02/07/21 18:45 88 97 02/07/21 18:40 63 95 02/07/21 18:34 72 93 02/07/21 18:29 75 95 02/07/21 18:27 75 94 02/07/21 18:24 76 94 02/07/21 18:22 74 94 02/07/21 18:19 79 96 02/07/21 18:17 84 94 02/07/21 18:14 82 95 02/07/21 18:10 83 94 02/07/21 18:09 85 96 02/07/21 18:05 80 94 02/07/21 18:04 89 98 02/07/21 17:59 80 97 02/07/21 17:58 82 89 02/07/21 17:54 83 96 02/07/21 17:50 79 94 02/07/21 17:49 83 96 02/07/21 17:44 75 96 02/07/21 17:40 89 93 02/07/21 17:39 86 95 02/07/21 17:34 76 97 02/07/21 17:30 87 94 02/07/21 17:29 79 95 02/07/21 17:24 82 96 Intake and Output 02/08/21 02/08/21 02/08/21 06:59 14:59 22:59 Intake Total 840 720 Output Total 1100 Balance -260 720 Intake: Oral 240 360 Intake, Free Water 600 360 Output: Urine 1100 Self-Catheterization 800 Void 300 Other: Total, Intake Amount 240 360 Total, Output Amount 300 # Voids Void 1 Estimated Blood Loss 200 - Exam Breasts: Present: deferred Cardiovascular: Present: Regular rate Lungs: Present: Normal air movement Abdomen: Present: normal appearance, soft Vulva: both: normal Uterus: Present: normal, firm Extremities: Present: normal
[2021-02-08 17:55] LABS: Hematocrit 37.7 % (30.3-42.9); Hemoglobin 12.3 gm/dl (10.1-14.3)
[2021-02-08] MEDS ORDERED: MAGNESIUM HYDROXIDE (MOM) ORAL LIQD UDC PO PRN (22:00)
[2021-02-09] MEDS: IBUPROFEN 600 MG TAB PO SCH (04:08)
[2021-02-09] MEDS ORDERED: TETANUS,DIPH,PERTUSS(ACELL) VACCINE 0.5 ML SYRINGE IM ONE (06:17)
--- NOTE | 2021-02-09 09:13 | Discharge Summary ---
Providers - Providers Date of Admission: 02/07/21 08:25 Date of discharge: 02/09/21 Attending physician: MAYELIN QUINTERO 02/08/21 09:49 Consult to [facility] [CONS] Routine Reason For Exam: assistance with , SNS Primary care physician: CONCHITA REYES MD Hospitalization Reason for admission: induction of labor, IUP at term Delivery: Episiotomy: none Laceration: none Other procedures: none complications: none Discharge diagnosis: IUP at term delivered [place] baby: male Condition at discharge: Good Disposition: 01 HOME / SELF CARE / HOMELESS - Discharge Diagnoses (1) 41 weeks gestation of Status: Acute (2) Encounter for induction of labor Status: Acute (3) GBS carrier Status: Acute Plan - Discharge Medications Prescriptions: Lidocain2.5%/Prilocai2.5% [Emla] 1 applic TP ONCE #1 tube Ibuprofen [Motrin] 800 mg PO Q8HR PRN #30 tablet PRN Reason: Pain, Moderate (4-6) - Provider Discharge Summary Activity: routine, no sex for 6 weeks, no heavy lifting 4 weeks, no strenuous exercise Diet: routine Instructions: routine Additional instructions: [] Smoking cessation referral if applicable(refer to patient education folder for contact #) [] Refer to [facility]'s [facility] Booklet Call your doctor immediately for: * Fever > 100.5 * Heavy vaginal bleeding ( >1 pad per hour) * Severe persistent headache * Shortness of breath * Reddened, hot, painful area to leg or breast * Drainage or odor from incision. * Keep incision clean and dry at all times and follow doctor's instructions regarding bathing/showering Congratulations! Please call [phone] to schedule your 4 week visit and a circumcision appointment in 1 week, if circumcision is desired. Thank you! - Follow up plan Follow up: CONCHITA REYES MD [Primary Care Provider] - 7 Days
[2021-02-09] MEDS: DOCUSATE SODIUM 100 MG CAP PO SCH (10:24)
[2021-02-09] MEDS: FERROUS SULFATE 325 MG TAB PO SCH (10:24)
[2021-02-09] MEDS: PRENATAL VIT27-FE FUMARATE-FOLIC ACID VIT TAB PO SCH (10:24)
[2021-02-09 11:12] VITALS: BP 113/75
[2021-02-09] MEDS ORDERED: DEXMEDETOMIDINE INFILTRATI SCH (12:00)
[2021-02-09] MEDS ORDERED: BUPIVACAINE INFILTRATI SCH (12:00)
[2021-02-09] MEDS ORDERED: SODIUM CHLORIDE INFILTRATI SCH (12:00)
--- NOTE | 2021-02-09 12:06 | Post Anesthesia Evaluation ---
- Post Anesthesia Evaluation Patient Participated: Yes Airway Patent: Yes Stable Respiratory Function: Yes Nausea/Vomiting: No Temp > 96.8F: Yes Pain Manageable: Yes Adequeate Hydration: Yes Anesthesia Complications: No Block Receding Appropriately: Yes
== END 2021-02-09 12:15 | disposition home or self-care (01) | DRG 807 ==
LOC: LD 08:25 → OB 02-08 08:39
PROVIDERS: ADMIT Obstetrics & Gynecology; ATTEND Obstetrics & Gynecology
PROC: 10E0XZZ Delivery of Products of Conception, External Approach (ICD-10-PCS; principal; 2021-02-08)
PROC: 3E033VJ Introduction of Other Hormone into Peripheral Vein, Percutaneous Approach (ICD-10-PCS; 2021-02-08)
PROC: 3E0R3BZ Introduction of Anesthetic Agent into Spinal Canal, Percutaneous Approach (ICD-10-PCS; 2021-02-08)
PROC: 00HU33Z Insertion of Infusion Device into Spinal Canal, Percutaneous Approach (ICD-10-PCS; 2021-02-08)
PROC: 3E0234Z Introduction of Serum, Toxoid and Vaccine into Muscle, Percutaneous Approach (ICD-10-PCS; 2021-02-09)
DX: O99.824 Streptococcus B carrier state complicating childbirth (principal); Z37.0 Single live birth; Z3A.41 41 weeks gestation of pregnancy; Z20.822 Contact with and (suspected) exposure to COVID-19; Z23 Encounter for immunization; Z88.8 Allergy status to other drugs, medicaments and biological substances
CPT/HCPCS: 36415; 85014; 85018; 85027; 86592; 86850; 86900; 86901; G0378; J0290; J2590; J7120; U0003

== ENCOUNTER 2021-03-17 09:20 | Emergency (ER) | payer BC, OTHER ==
[2021-03-17 09:26] VITALS: BP 96/73
--- NOTE | 2021-03-17 09:47 | Emergency Department Report ---
HPI - General Chief Complaint: Vaginal Bleeding Time Seen by Provider: 03/17/21 09:32 - HPI HPI: 20-year-old -[place] female presents to the emergency department with complaint of a 1 week history of some abnormal and/or heavy vaginal bleeding. T he patient gave here about 5 weeks ago via vaginal delivery without any complications. The patient went for her 4-week follow-[place] this [place] [facility] [place] and says that she was told that everything was normal. The next day, , the patient began having some vaginal bleeding that she equated as having a menstrual cycle. About 3 days later she started having increasingly heavier vaginal bleeding. The patient woke up this morning and says that she has been going through a pad about every 20 minutes or so and has had heavy vaginal bleeding including clots. She denies any fever, shortness of breath, abdominal or pelvic pain, back pain, dysuria, vaginal discharge. ED Past Medical Hx - Past Medical History Hx Hypertension: No Hx Congestive Heart Failure: No Hx Diabetes: No Hx Deep Vein Thrombosis: No Hx Renal Disease: No Hx Sickle Cell Disease: No Hx Seizures: No Hx Asthma: No Hx COPD: No Hx HIV: No - Social History Smoking Status: Never Smoker - Medications Home Medications: Home Medications Medication Instructions Recorded Confirmed Last Taken Type Vit-Fe Fumar-FA [ 1 tab PO DAILY 01/09/21 02/08/21 01/08/21 16:00 History Vitamin] Ibuprofen [Motrin] 800 mg PO Q8HR PRN #30 tablet 02/08/21 Unknown Rx Lidocain2.5%/Prilocai2.5% [Emla] 1 applic TP ONCE #1 tube 02/08/21 Unknown Rx ED Review of Systems ROS: Stated complaint: VAGINAL BLEEDING Other details as noted in HPI Comment: All other systems reviewed and negative Constitutional: denies: chills, fever Eyes: denies: eye pain, vision change ENT: denies: ear pain, throat pain Respiratory: denies: cough, shortness of breath Cardiovascular: denies: chest pain, palpitations Gastrointestinal: denies: abdominal pain, vomiting Genitourinary: abnormal menses. denies: dysuria, discharge Musculoskeletal: denies: back pain, arthralgia Skin: denies: rash, lesions Neurological: denies: headache, weakness Physical Exam - Physical Exam Vital Signs: Vital Signs 03/17/21 09:23 Temperature 98.9 F Pulse Rate 88 Respiratory 18 Rate Blood Pressure 96/73 [Right] O2 Sat by Pulse 98 Oximetry Physical Exam: GENERAL: The patient is well-developed well-nourished. HENT: Normocephalic. Atraumatic. Patient has moist mucous membranes. EYES: Extraocular motions are intact. NECK: Supple. Trachea is midline. CHEST/LUNGS: Clear to auscultation. There is no respiratory distress noted. HEART/CARDIOVASCULAR: Regular. There is no tachycardia. There is no murmur. ABDOMEN: Abdomen is soft, nontender. Patient has normal bowel sounds. SKIN: Skin is warm and dry. NEURO: The patient is awake, alert, and oriented. The patient is cooperative. Normal speech. MUSCULOSKELETAL: There is no tenderness or deformity. There is no limitation range of motion. ED Course Vital Signs 03/17/21 09:23 Temperature 98.9 F Pulse Rate 88 Respiratory 18 Rate Blood Pressure 96/73 [Right] O2 Sat by Pulse 98 Oximetry - Consultations Consultation #1: 03/17/21 11:10 I spoke with staff nurse midwife Shanta, working under Dr. French, who says that the patient can be discharged home to follow-up in the office in the next few days. That the patient should expect that the first menstrual cycle after delivery can be unpredictable and sometimes can last for a long time or be heavy vaginal bleeding. Given the normal hemoglobin, normal vitals, and being asymptomatic, she is safe for discharge home. ED Medical Decision Making - Lab Data Result diagrams: 03/17/21 09:57 03/17/21 09:57 Lab Results 03/17/21 03/17/21 Range/Units 09:57 09:57 WBC 6.6 (4.5-11.0) K/mm3 RBC 5.21 H (3.65-5.03) M/mm3 Hgb 13.9 (10.1-14.3) gm/dl Hct 43.3 H (30.3-42.9) % MCV 83 (79-97) fl MCH 27 L (28-32) pg MCHC 32 (30-34) % RDW 12.5 L (13.2-15.2) % Plt Count 166 (140-440) K/mm3 Lymph % (Auto) 35.9 H (13.4-35.0) % [place] % (Auto) 4.8 (0.0-7.3) % Eos % (Auto) 2.0 (0.0-4.3) % Baso % (Auto) 1.2 (0.0-1.8) % Lymph # (Auto) 2.4 (1.2-5.4) K/mm3 [place] # (Auto) 0.3 (0.0-0.8) K/mm3 Eos # (Auto) 0.1 (0.0-0.4) K/mm3 Baso # (Auto) 0.1 (0.0-0.1) K/mm3 Seg Neutrophils % 56.1 (40.0-70.0) % Seg Neutrophils # 3.7 (1.8-7.7) K/mm3 Sodium 140 (137-145) mmol/L Potassium 4.4 (3.6-5.0) mmol/L Chloride 104.6 (98-107) mmol/L Carbon Dioxide 22 (22-30) mmol/L Anion Gap 18 mmol/L BUN 11 (7-17) mg/dL Creatinine 0.6 (0.6-1.2) mg/dL Estimated GFR > 60 ml/min BUN/Creatinine Ratio 18 % Glucose 86 (65-100) mg/dL Calcium 9.0 (8.4-10.2) mg/dL - Medical Decision Making This patient presents to the emergency department with a complaint of a 1 week history of vaginal bleeding that has gotten progressively heavier. However she denies any headache, lightheadedness/dizziness, chest pain, shortness of breath. Patient's hemoglobin is normal at 13.9. I spoke with the patient's PRODUCT TECHNOLOGY SCIENTIST service who says that there is no acute intervention necessary at this time and patient can follow-up in their office outpatient regarding the vaginal bleeding. This was discussed with the patient and she understands and agrees to the plan. Critical Care Time: No Critical care attestation.: If time is entered above; I have spent that time in minutes in the direct care of this critically ill patient, excluding procedure time. ED Disposition Clinical Impression: Dysfunctional uterine bleeding Disposition: 01 HOME / SELF CARE / HOMELESS Is pt being admited?: No Condition: Stable Instructions: Abnormal Uterine Bleeding Additional Instructions: Please follow-up with your PRODUCT TECHNOLOGY SCIENTIST in the next few days. Return to the emergency department with any worsening of your symptoms, new or concerning symptoms not addressed during this current emergency department visit, or with any acute distress. Referrals: [facility] [Provider Group] - 2-3 Days Time of Disposition: 11:15
[2021-03-17 10:11] LABS: Basophils # (Auto) 0.1 K/mm3 (0.0-0.1); Basophils % (Auto) 1.2 % (0.0-1.8); Eosinophils # (Auto) 0.1 K/mm3 (0.0-0.4); Hematocrit 43.3 % (30.3-42.9); Hemoglobin 13.9 gm/dl (10.1-14.3); Lymphocytes # (Auto) 2.4 K/mm3 (1.2-5.4); Lymphocytes % (Auto) 35.9 % (13.4-35.0); Mean Corpuscular HGB Conc 32 % (30-34); Mean Corpuscular Volume 83 fl (79-97); Monocytes # (Auto) 0.3 K/mm3 (0.0-0.8); Monocytes % (Auto) 4.8 % (0.0-7.3); Platelet Count 166 K/mm3 (140-440); Red Blood Count 5.21 M/mm3 (3.65-5.03); Red Cell Distribution Width 12.5 % (13.2-15.2)
[2021-03-17 10:28] LABS: Blood Urea Nitrogen 11 mg/dL (7-17); Hemolysis Index 7
[2021-03-17 10:30] LABS: BUN/Creatinine Ratio 18
== END 2021-03-17 12:42 | disposition home or self-care (01) ==
LOC: ED 09:20
DX: N93.9 Abnormal uterine and vaginal bleeding, unspecified (principal)
CPT/HCPCS: 36415; 80048; 85025; 99283